=== PATIENT | female | born 1950 | race African-American/Black ===

== ENCOUNTER 2022-08-13 06:59 | Emergency (ER) | payer BC, MEDICAID ==
[~2022-08-13] VITALS: Ht 157.5 cm; Wt 70.0 kg
[2022-08-13 08:35] LABS: BASOPHILS % 0.5 % (0.0-2.0); EOSINOPHILS % 2.2 % (0.0-5.0); HEMATOCRIT. 36.1 % (36.0-48.0); HEMOGLOBIN. 12.1 g/dL (12.0-16.0); LYMPHOCYTES % 50.6 % (20.0-50.0); MEAN CORPUSCULAR HEMOGLOBIN 29.3 pg (28.0-32.0); MEAN CORPUSCULAR VOLUME 87.2 fL (81.0-99.0); MEAN PLATELET VOLUME 10.2 fl (7.4-10.4); NEUTROPHILS % 40.7 % (40.0-76.0); PLATELET 223 x1000/uL (130-400); RED BLOOD CELL COUNT 4.14 mill/uL (4.2-5.4); RED CELL DISTRIBUTION WIDTH 15.2 % (11.6-14.6)
[2022-08-13 08:43] LABS: CHLORIDE 106 mEq/L (98-107)
[2022-08-13] MEDS ORDERED: POTASSIUM CHLORIDE 20MEQ/PACKET PO NR (09:00)
[2022-08-13] MEDS ORDERED: POTASSIUM CHLORIDE 20MEQ TABLET SR PO NR (09:45)
[2022-08-13] MEDS ORDERED: POTA10CA42 MT (10:34)
[2022-08-13 10:51] VITALS: BP 159/65
== END 2022-08-13 10:52 | disposition home or self-care (01) ==
LOC: ER 06:59 → EDBD 06:59 → ER 10:52
DX: E87.6 Hypokalemia (principal); I10 Essential (primary) hypertension; E78.00 Pure hypercholesterolemia, unspecified; Z90.710 Acquired absence of both cervix and uterus
CPT/HCPCS: 36415; 80053; 85025; 93005; 99284

== ENCOUNTER 2023-12-27 10:03 | Emergency (ER) | payer BC, MEDICAID ==
[~2023-12-27] VITALS: Ht 165.1 cm; Wt 59.0 kg
[~2023-12-27 10:03] MED LIST: POTA10CA83 MT
[2023-12-27 10:15] VITALS: BP 161/78; PULSE 89; RESP 16; TEMP 98.2; O2SAT 100
[2023-12-27] MEDS ORDERED: LIDOCAINE HCL/EPINEPHRINE 1%-EPI 1:100,000 20 ML VIAL INFIL ONE (10:15)
== END 2023-12-27 11:39 | disposition home or self-care (01) ==
LOC: ER 10:03
DX: S01.91XA Laceration without foreign body of unspecified part of head, initial encounter (principal); I10 Essential (primary) hypertension; R51.9 Headache, unspecified; E78.00 Pure hypercholesterolemia, unspecified; Z98.890 Other specified postprocedural states; W01.0XXA Fall on same level from slipping, tripping and stumbling without subsequent striking against object, initial encounter; Y93.89 Activity, other specified; Y92.89 Other specified places as the place of occurrence of the external cause; Y99.8 Other external cause status
CPT/HCPCS: 99284; 70450; 12001; J3490